=== PATIENT | female | born 1995 | race Caucasian/White ===

== ENCOUNTER 2021-04-17 15:36 | Emergency (ER) | payer OTHER ==
[~2021-04-17 15:36] MED LIST: CYCLOBENZAPRINE10 MG PO; MEDROL 4MG DOSEP4 MG PO
[2021-04-17] MEDS ORDERED: MOTRIN600 MG PO (20:18)
== END 2021-04-17 20:57 | disposition home or self-care (01) ==
LOC: FER 15:36
DX: R07.89 Other chest pain (principal)
CPT/HCPCS: 71046; 93005